=== PATIENT | male | born 1940 | race Caucasian/White ===

== ENCOUNTER 2018-08-22 15:58 | Observation (INO) ==
[2018-08-22] MEDS ORDERED: DOCUSATE SODIUM 100 MG CAPSULE PO PRN (16:34)
[2018-08-22] MEDS ORDERED: ONDANSETRON 4 MG/2 ML VIAL IV PRN (16:34)
[2018-08-22] MEDS ORDERED: ACETAMINOPHEN 325 MG TABLET PO PRN (16:34)
[2018-08-22 17:48] LABS: Basophils % 0.5 % (0.0-0.8); Eosinophils # 0.4 10*3/uL (0.0-0.87); Eosinophils % 5.5 % (0.00-10.9); Hematocrit 46.1 VOL% (42.0-52.0); Hemoglobin 14.8 GM/DL (14.0-18.0); Immature Granulocytes % 0.4 %; Immature Granulocytes Absolute 0.03 #; Lymphocytes # 1.9 10*3/uL (1.4-4.0); Lymphocytes % 24.1 % (21.2-54.2); Mean Corpuscular HGB Conc 32.1 GM/DL (32-36); Mean Corpuscular Hemoglobin 31 PG (27-34); Mean Corpuscular Volume 95.1 FL (87-102); Mean Platelet Volume 10.8 FL (9.6-12.0); Monocytes # 0.6 10*3/uL (0.11-0.8); Monocytes % 7.8 % (1.7-12.7); Neutrophils # 4.9 10*3/uL (1.4-7.4); Neutrophils % 61.7 % (38.7-73.9); Platelet Count 186 T/CUMM (130-400); Red Blood Count 4.85 MC/CUMM (3.8-5.5); Red Cell Distribution Width 12.8 % (9.3-17.3)
[2018-08-22] MEDS ORDERED: NITROGLYCERIN SL 0.4 MG TABLET SL PRN (18:20)
[2018-08-22 18:21] LABS: Albumin 4.1 G/DL (3.4-5.0); Bilirubin,Total 0.6 MG/DL (0.2-1.0); Calcium 9.3 MG/DL (8.5-10.1); Potassium 4.1 MMOL/L (3.5-5.1); Total Protein 7.4 G/DL (6.4-8.3)
[2018-08-22 18:38] LABS: Apearance,Urine CLEAR (Clear); Bilirubin,Urine Negative (Negative); Blood, Urine Negative (Negative); Glucose,Urine (UA) Negative (Negative); Ketones,Urine Negative (Negative); Mucus,Urine Occasional /LPF (Occasional); Nitrite,Urine Negative (Negative); Protein,Urine Negative; RBC,Urine 1 /HPF (0-4); Squamous Epithelial Cell,Urine Occasional /HPF (0-10); Urine Color Yellow (Yellow); Urine Specific Gravity 1.015 (1.001-1.035); Urine Urobilinogen < 2.0 EU/DL (0.2-1.0); WBC,Urine 1 /HPF (0-6)
[2018-08-22] MEDS: SODIUM CHLORIDE 0.9% 1,000 ML IV SCH (18:46)
[2018-08-22] MEDS ORDERED: MECLIZINE 25 MG TABLET PO PRN (20:14)
[2018-08-22 21:09] LABS: Troponin I < 0.015 NG/ML (0.00-0.045)
[2018-08-22] MEDS: ENOXAPARIN 40 MG/0.4 ML SYRINGE SUBCUT SCH (21:25)
[2018-08-22] MEDS: BENAZEPRIL 40 MG TABLET PO SCH ×2 (21:25→21:50)
[2018-08-22] MEDS: ASPIRIN EC 81 MG TABLET PO SCH (21:25)
[2018-08-22] MEDS: FLUTICASONE 50 MCG NASAL SPRAY 16 GM BOTTLE BOTH NARES SCH (21:25)
[2018-08-22] MEDS: ATORVASTATIN 40 MG TABLET PO SCH ×2 (21:25→21:50)
[2018-08-22] MEDS: amLODIPine 10 MG TABLET PO SCH ×2 (21:25→21:51)
[2018-08-22] MEDS: TEMAZEPAM 15 MG CAPSULE PO PRN (22:39)
[2018-08-23 05:57] LABS: Risk Ratio 3.21; VLDL CHOLESTEROL 24.6 MG/DL
[2018-08-23] MEDS: SODIUM CHLORIDE 0.9% 1,000 ML IV SCH ×2 (07:18→20:56)
[2018-08-23] MEDS: PANTOPRAZOLE 40 MG TABLET PO SCH (08:17)
[2018-08-23] MEDS: FLUTICASONE 50 MCG NASAL SPRAY 16 GM BOTTLE BOTH NARES SCH ×2 (08:26→20:57)
[2018-08-23] MEDS: BENAZEPRIL 40 MG TABLET PO SCH (20:54)
[2018-08-23] MEDS: ENOXAPARIN 40 MG/0.4 ML SYRINGE SUBCUT SCH (20:54)
[2018-08-23] MEDS: amLODIPine 10 MG TABLET PO SCH (20:55)
[2018-08-23] MEDS: TEMAZEPAM 15 MG CAPSULE PO PRN (20:55)
[2018-08-23] MEDS: ATORVASTATIN 40 MG TABLET PO SCH (20:55)
[2018-08-23] MEDS: ASPIRIN EC 81 MG TABLET PO SCH (20:55)
[2018-08-24 08:32] VITALS: BP 136/75
[2018-08-24] MEDS: FLUTICASONE 50 MCG NASAL SPRAY 16 GM BOTTLE BOTH NARES SCH (09:07)
[2018-08-24] MEDS: PANTOPRAZOLE 40 MG TABLET PO SCH (09:07)
== END 2018-08-24 09:53 | disposition home or self-care (01) ==
LOC: N.2E
PROVIDERS: ADMIT Family Medicine; ATTEND Family Medicine